=== PATIENT | male | born 1940 | race Caucasian/White ===

== ENCOUNTER 2016-06-28 13:19 | Observation (INO) | payer OTHER ==
[~2016-06-28] VITALS: Ht 188 cm; Wt 84.0 kg
[~2016-06-28 13:19] MED LIST: ATORVASTATIN CA10 MG PO; CARBIDOPA/LEVO1 EACH PO; LO-DOSE ASPIRIN81 M1 PO; PANTOPRAZOLE SO40 MG PO; VITAMIN B12-FO1 EACH PO
[2016-06-28 14:16] LABS: EOSINOPHIL (%) 0.1 % (0-5); HEMATOCRIT 40.4 % (38.0-50.0); IMMATURE GRANULOCYTE (%) 0.3 % (0.0-0.7); INSTRUMENT ABS NEUTROPHIL CT 6.3 K/uL; LYMPHOCYTE COUNT 0.3 K/uL (1.0-2.8); MCH 31.5 PG (29.0-34.0); MCHC 33.2 G/DL (30.0-36.0); MCV 94.8 FL (86-99); MONOCYTE (%) 5.5 % (3-12); MONOCYTE COUNT 0.4 K/uL (0-0.8); NEUTROPHIL (%) 90.2 % (45-76); NEUTROPHIL COUNT 6.3 K/uL (1.8-6.4); PLATELET COUNT 161 K/uL (156-360); RBC DIS.WIDTH-CV 12.7 % (11.8-14.6); RBC DIS.WIDTH-SD 43.8 % (39-53); RED BLOOD COUNT 4.26 M/uL (4.00-5.50)
[2016-06-28 14:26] LABS: CHLORIDE 105 mEq/L (99-109); POTASSIUM 4.4 mEq/L (3.7-5.4); SODIUM 138 mEq/L (136-147)
[2016-06-28 14:28] LABS: GLUCOSE 142 mg/dL (70-99)
[2016-06-28 14:29] LABS: ANION GAP 8 MEQ/L (2-14)
[2016-06-28 14:30] LABS: TOTAL BILIRUBIN 0.7 mg/dL (0.0-1.0)
[2016-06-28 14:31] LABS: ALKALINE PHOSPHATASE 104 IU/L (3-129)
[2016-06-28 14:32] LABS: GFR ESTIMATE (CALCULATED) > 59 mL/min/
[2016-06-28 14:33] LABS: UREA NITROGEN (BUN) 17 mg/dL (9-23)
[2016-06-28 14:35] LABS: LIPASE 9 U/L (1.0-51.0)
[2016-06-28 14:37] LABS: TROP-I INTERPRETATION NEGATIVE; TROPONIN-I < 0.01 ng/mL (0.0-0.30)
[2016-06-28 16:33] LABS: ADD MIUA? YES; BILIRUBIN NEGATIVE; BLOOD SMALL; COLOR YELLOW ((YELLOW)); GLUCOSE (STRIP) NEGATIVE; KETONES 5; LEUKOCYTES NEGATIVE; NITRITE NEGATIVE; PROTEIN (STRIP) NEGATIVE; SPECIFIC GRAVITY 1.017 (1.000-1.030); UROBILINOGEN 0.2 MG/DL (0.2-1.0)
[2016-06-28 16:53] LABS: AMORPHOUS URATES CRYSTALS 2+; BACTERIA NONE SEEN /HPF; CASTS NONE SEEN /LPF; CRYSTALS PRESENT; EPITHELIAL CELLS NONE SEEN /HPF; MUCUS NONE SEEN /LPF; RED BLOOD CELLS NONE SEEN /HPF (0-5); UCUL ADDED? NO; WHITE BLOOD CELLS NONE SEEN /HPF (0-5)
[2016-06-28] MEDS ORDERED: CARBIDOPA/LEVO1 EACH PO ×4 (19:08→19:09)
[2016-06-28 22:00] VITALS: BP 136/71
[2016-06-29 00:01] VITALS: BP 135/74
[2016-06-29 04:05] VITALS: BP 133/62
[2016-06-29 07:43] VITALS: BP 161/84
[2016-06-29 12:22] VITALS: BP 168/71
[2016-06-29 16:07] VITALS: BP 159/77
[2016-06-29 19:43] VITALS: BP 145/84
[2016-06-30 00:10] VITALS: BP 147/76
[2016-06-30 05:04] VITALS: BP 150/68
[2016-06-30 07:12] VITALS: BP 161/89
[2016-06-30 11:49] VITALS: BP 140/74
[2016-06-30] MEDS ORDERED: ANTIVERT25 MG PO (13:57)
[2016-06-30] MEDS ORDERED: PREDNISONE10 MG PO (13:57)
[2016-06-30] MEDS ORDERED: PANTOPRAZOLE SO40 MG PO (13:57)
== END 2016-06-30 14:49 | disposition home or self-care (01) ==
LOC: EME → EDBD 13:19 → 5WEST 20:09 → EDOF 20:09 → 5WEST 21:57
PROVIDERS: Emergency Medicine
DX: H83.09 Labyrinthitis, unspecified ear (principal); R42 Dizziness and giddiness; R26.2 Difficulty in walking, not elsewhere classified; R11.10 Vomiting, unspecified; G20 Parkinson's disease; I10 Essential (primary) hypertension; K21.9 Gastro-esophageal reflux disease without esophagitis
CPT/HCPCS: 70450; 71020; 80053; 81003; 83690; 84484; 85025; 93005; 99281; 99285; G0378; G8978 GP CJ; G8979 GP CH; G8987 GO CI; G8988 GO CH; J1650; J2405; J2765; J2930; J3360; J7030; J7042

== ENCOUNTER → 2017-05-25 | Outpatient (CLI) | payer OTHER ==
[~2017-05-25] MED LIST changes: +ANTIVERT25 MG PO; +PREDNISONE10 MG PO
== END | disposition home or self-care (01) ==
DX: R13.13 Dysphagia, pharyngeal phase (principal); G20 Parkinson's disease; Z87.01 Personal history of pneumonia (recurrent)
CPT/HCPCS: 92611 GN; G8996 GN; G8997 GN; G8998 GN